=== PATIENT | female | born 1990 | race Caucasian/White ===

== ENCOUNTER 2021-06-06 18:44 | Emergency (ER) | payer SELFPAY | END 2021-06-06 20:16 | disposition home or self-care (01) | LOC: BURERS 18:44 | DX: J06.9 Acute upper respiratory infection, unspecified (principal); F17.210 Nicotine dependence, cigarettes, uncomplicated | CPT/HCPCS: 99283 ==

== ENCOUNTER 2021-06-19 18:57 | Emergency (ER) | payer SELFPAY ==
[2021-06-19] MEDS ORDERED: Penicillin V Potassium 250 MG TAB ONE (19:15)
[2021-06-19] MEDS ORDERED: traMADol HCl 50 MG TAB ONE (19:15)
== END 2021-06-19 19:25 | disposition home or self-care (01) ==
LOC: BURERS 18:57
DX: K02.9 Dental caries, unspecified (principal); K05.10 Chronic gingivitis, plaque induced; F17.210 Nicotine dependence, cigarettes, uncomplicated
CPT/HCPCS: 99283

== ENCOUNTER 2021-06-28 03:23 | Emergency (ER) | payer SELFPAY ==
[2021-06-28 04:37] LABS: #Basophils 0.1 thou/uL (0.0-0.2); #Eosinphils 0.3 thou/uL (0.0-0.7); #Lymphocytes 1.1 thou/uL (1.20-3.40); #Monocytes 0.7 thou/uL (0.11-0.59); %Basophils 0.7 % (0.0-1.0); %Eosinophils 3.3 % (0.0-10.0); %Lymphocytes 10.8 % (21.0-51.0); %Monocytes 6.5 % (0.0-10.0); %Neutrophils 78.6 % (42.0-75.0); Hemoglobin 15.7 g/dL (12.0-16.0); Mean Corpuscular Hemoglobin 32.4 pg (27.0-31.0); Mean Corpuscular Volume 92.6 fL (78.0-98.0); Platelet Count 235 thou/uL (130-400); RBC Distribution Width 10.9 % (11.5-14.5); Red Blood Cell (RBC) Count 4.85 mill/uL (4.20-5.40); White Blood Cell (WBC) Count 10.1 thou/uL (4.8-10.8)
[2021-06-28 04:49] LABS: BHCG - Serum Negative (NEGATIVE); Pregs Control Background? CLEAR/WHITE (CLR/WHITE); Pregs Control Bar Appear? YES (CONTROL BAR)
[2021-06-28 04:57] LABS: ALT (SGPT) 13 U/L (8-55); AST (SGOT) 13 U/L (5-34); Albumin 4.3 g/dL (3.5-5.0); Alkaline Phosphatase 65 U/L (40-110); Anion Gap 15 mmol/L (10-20); BUN (Urea Nitrogen) 11 mg/dL (7.0-18.7); Bilirubin, Total 0.5 mg/dL (0.2-1.2); Calc. Creatinine Clearance 0 mL/min (70-130); Calcium 9.7 mg/dL (7.8-10.44); Carbon Dioxide 24 mmol/L (22-29); Chloride 102 mmol/L (98-107); Globulin 2.9 g/dL (2.4-3.5); Glucose 98 mg/dL (70-105); Potassium 3.4 mmol/L (3.5-5.1); Protein, Total 7.2 g/dL (6.0-8.3); Sodium 138 mmol/L (136-145)
[2021-06-28 04:58] LABS: Acetaminophen Less than 6.0 mcg/mL (10.0-30.0); Alcohol Less than 10 mg/dL (Less than 10); Salicylate Less than 8.0 mg/dL (15.0-30.0)
[2021-06-28] MEDS ORDERED: Morphine 4 MG/ML VIAL ONE (05:19)
[2021-06-28] MEDS ORDERED: Ketorolac Tromethamine 30 MG/ML VIAL ONE (05:19)
[2021-06-28] MEDS ORDERED: Ondansetron PF 4 MG/2 ML Vial ONE (05:19)
== END 2021-06-28 07:26 | disposition home or self-care (01) ==
LOC: BURERS 03:23
DX: T43.211A Poisoning by selective serotonin and norepinephrine reuptake inhibitors, accidental (unintentional), initial encounter (principal); R11.2 Nausea with vomiting, unspecified; F17.210 Nicotine dependence, cigarettes, uncomplicated
CPT/HCPCS: 36415; 80053; 80307; 84703; 85025; 93005; 96374; 96375; J1885; J2270; J2405